=== PATIENT | female | born 1945 | race Hispanic/Latino ===

== ENCOUNTER → 2020-08-18 | Outpatient (CLI) | payer MEDICARE | END | disposition home or self-care (01) | LOC: OIH 10:36 | PROVIDERS: ATTEND Family Medicine | DX: R07.81 Pleurodynia (principal); R91.1 Solitary pulmonary nodule; M47.814 Spondylosis without myelopathy or radiculopathy, thoracic region; I10 Essential (primary) hypertension; M54.6 Pain in thoracic spine | CPT/HCPCS: 71046; 71110 ==

== ENCOUNTER 2023-12-12 19:33 | Emergency (ER) | payer MEDICARE ==
[~2023-12-12] VITALS: Ht 167.6 cm; Wt 104.3 kg
[2023-12-12] MEDS ORDERED: DICL20GE TP (20:41)
[2023-12-12] MEDS ORDERED: FLUT16H NASAL (20:41)
[2023-12-12] MEDS ORDERED: AMOX1TAB16 PO (20:41)
[2023-12-12 21:14] VITALS: BP 182/81; PULSE 71; RESP 18; TEMP 98.5; O2SAT 100
== END 2023-12-12 21:26 | disposition home or self-care (01) ==
LOC: EDH 19:33
DX: J01.10 Acute frontal sinusitis, unspecified (principal); E11.9 Type 2 diabetes mellitus without complications; I10 Essential (primary) hypertension; Z88.5 Allergy status to narcotic agent; Z90.89 Acquired absence of other organs; Z85.528 Personal history of other malignant neoplasm of kidney

== ENCOUNTER 2025-02-13 22:26 | Emergency (ER) | payer MEDICARE, OTHER ==
[~2025-02-13] VITALS: Ht 167.6 cm; Wt 104.3 kg
[2025-02-13 23:52] LABS: IMMATURE GRANULOCYTE ABSOLUTE 0.03 K/uL (0-1); NUCLEATED RED BLOOD CELLS 0.0 % (0.0-0.19); PLATELET COUNT (AUTO) 235 K/uL (130-400); RED BLOOD CELL COUNT(AUTO) 3.69 MIL/uL (4.00-5.50); RED CELL DISTRIBUTION WIDTH 13.6 % (11.0-15.5); WHITE BLOOD COUNT (AUTO) 7.1 K/uL (4.8-10.8)
[2025-02-14 00:02] LABS: CREATININE 1.6 mg/dL (0.5-1.0); GLOMERULAR FILTR. RATE CALC 33 mL/min (>90); GLUCOSE,RANDOM 115 mg/dL (70-105); SODIUM SERUM 139 mmol/L (136-145); UREA NITROGEN, BLOOD 42 mg/dL (7-18)
--- NOTE | 2025-02-14 00:06 | NUR ---
PATIENT TRYING TO GET URINE SAMPLE AT THIS TIME.
--- NOTE | 2025-02-14 00:12 | HMCIMG ---
EXAM: CR Chest, 1 view CLINICAL HISTORY: Altered mental status. COMPARISON: None provided. FINDINGS: 6 mm calcified granuloma in the left mid zone. Mildly elevated right hemidiaphragm. The lungs show no infiltrates or other acute findings. No pleural effusion or pneumothorax. The cardiomediastinal silhouette is within normal limits. No acute osseous abnormality. Degenerative osseous changes. IMPRESSION: No acute cardiopulmonary pathology is evident. /[place]
[2025-02-14 00:20] LABS: COVID19 (SARS ANTIGEN RAPID) PRESUMPTIVE NEGATIVE (NEGATIVE); INFLUENZA TYPE A Negative For Type A (NEGATIVE); INFLUENZA TYPE B Negative For Type B (NEGATIVE)
[2025-02-14 00:25] LABS: APPEARANCE,URINE CLOUDY (CLEAR); GLUCOSE, URINE (UA) NEGATIVE (NEGATIVE); LEUKOCYTE ESTERASE ,URINE NEGATIVE Leu/uL (NEGATIVE); NITRATE,URINE NEGATIVE (NEGATIVE); OCCULT BLOOD,URINE NEGATIVE (NEGATIVE)
[2025-02-14 00:26] LABS: ADD UA MICROSCOPIC YES
[2025-02-14 00:27] LABS: SQUAMOUS EPITHELIAL CELL,UR MOD /HPF (0-2)
--- NOTE | 2025-02-14 02:33 | ERN ---
ED Note History of Present Illness Stated Complaint: C/O CONFUSION Chief Complaint: Altered Mental Status Time Seen by MD: 22:38 Time Seen by Midlevel: 22:38 Dictation: The patient is a 79-year-old female with a history of diabetes, hypertension, seizures, CKD, meningioma who presents to the emergency department with complaints an episode of confusion earlier today. Per daughter she got home around 6:00 p.m. she noticed remarkable was getting ready to go to the [facility] which they had already gone this morning. Reports patient was confused on the time of day. They denied any falls or head trauma, denies any seizures activity, fever, recent illness. Patient has no complains. Allergies: Coded Allergies: Codeine (Unverified Allergy, 11/23/11) Home Meds Active Scripts Diclofenac Sodium (Voltaren Arthritis Pain) 1 % Gel..gram., 20 GM TP BID for 7 Days, #1 TUBE Prov:PANFILO VENTURA MD 12/12/23 Fluticasone Propionate (Flonase Nasal [place]) 50 Mcg/Actuation [place], 50 MCG NASAL BID for 14 Days, #60 SPRAY Prov:PANFILO VENTURA MD 12/12/23 Amoxicillin/Potassium Clav (Amox Tr-K Clv 875-125 mg Tab) 875 Mg-125 Mg Tablet, 1 EACH PO BID for 7 Days, #14 TAB Prov:PANFILO VENTURA MD 12/12/23 Past Medical History Past Medical History: Diabetes-Type II, Hypertension Additional Past Medical Hx: HX OF MENINGOMA; HX OF KIDNEY CA ( REMISSION) Surgical History: Other Surgical History Other: THYROIDECTOMY RN Note Reviewed/Agreed w/PFSH: Yes Review of System Dictation Constitutional: Negative for fever,chills, and weight loss Eyes: Negative for injury, pain,redness, and discharge ENT: Negative for injury,pain or swelling Cardiovascular: Negative for chest pain, palpitations, and edema Respiratory: Negative for shortness of breath, cough, and wheezing, Abdomen/GI: Negative for abdominal pain, nausea, vomiting, diarrhea, and constipation Back: Negative for injury and pain : Negative for injury, bleeding and discharge MS/Extremity: Negative for injury and deformity Skin: Negative for rash, and discoloration Neuro: Negative for headache, weakness, numbness, tingling, and seizure positive for confusion Psych: Negative for suicide ideation, homicidal ideation, and hallucinations Initial Vital Sign VS Vital Signs Date Time Temp Pulse Resp B/P (MAP) Pulse Ox O2 Delivery O2 Flow Rate FiO2 02/13/25 22:32 97.0 74 20 136/52 99 Room Air 02/14/25 00:35 0 21 Physical Exam Dictation Vital Signs reviewed General Appearance: Alert, oriented x 3, no acute distress, well developed, nourished. Head and Face: non-traumatic. Eyes: PERRL, pink conjunctivas, eyelid no trauma, anterior chamber with arcus s enilis. Ears: Pinnas intact and no signs of trauma or erythema ear canals clear and no discharge TM no erythema Nose: No discharge, no bleeding. Oropharynx: Mouth normal, tongue pink. pharynx clear,no erythema, tonsils no exudates, no abscesses noted, mucous membrane moist Neck: Supple, non-tender, no thyromegaly, no masses, no JVD, no bruits Breast:Deferred Chest:No tenderness, no crepitus, no paradoxical movement, no retractions Lungs:Clear, well-ventilated, symmetric, no rales, no wheezing, no rhonchi, no stridor, good breath sounds bilaterally Heart: Regular rate, regular rhythm, no murmur, no gallops Vascular: no peripheral edema, Abdomen: Soft, positive bowel sounds, nondistended, no guarding, nontender, no rebound, no masses no hepatomegaly, no splenomegaly, no Elliott's sign, no hernias. Rectal: Deferred Genital: Deferred Neurological: Normal speech, motor function intact, sensory function intact Musculoskeletal: Neck nontender, full range of motion, back nontender, full range of motion, Extremities: nontender, full range of motion Skin: Color pink, dry, no turgor, no rash, no lacerations, no abrasions, no contusions. Lymphatic: Deferred Results (Laboratory/Radiology) Laboratory/Radiology Laboratory Tests Test 02/13/25 23:43 02/13/25 23:56 02/14/25 00:16 White Blood Count 7.1 K/uL (4.8-10.8) Red Blood Count 3.69 MIL/uL (4.00-5.50) L Hemoglobin 10.8 g/dL (12.0-16.0) L Hematocrit 32.5 % (36-48) L Mean Corpuscular Volume 88.1 fL (79-99) Mean Corpuscular Hemoglobin 29.3 pg (27.0-33.0) Mean Corpuscular Hemoglobin Concent 33.2 g/dL (32.0-36.0) Red Cell Distribution Width 13.6 % (11.0-15.5) Platelet Count 235 K/uL (130-400) Mean Platelet Volume 9.9 fL (7.5-10.5) Immature Granulocyte % (Auto) 0.4 % (0-1) Neutrophils (%) (Auto) 69.6 % (40.0-77.0) Lymphocytes (%) (Auto) 20.6 % (21.0-51.0) L Monocytes (%) (Auto) 7.5 % (3.0-13.0) Eosinophils (%) (Auto) 1.6 % (0.0-8.0) Basophils (%) (Auto) 0.3 % (0.0-5.0) Neutrophils # (Auto) 4.9 K/uL (1.8-7.7) Lymphocytes # (Auto) 1.5 K/uL (1.0-4.8) Monocytes # (Auto) 0.5 K/uL (0.1-1.0) Eosinophils # (Auto) 0.11 K/uL (0.00-0.70) Basophils # (Auto) 0.02 K/uL (0.00-0.20) Absolute Immature Granulocyte (auto 0.03 K/uL (0-1) Nucleated Red Blood Cells 0.0 % (0.0-0.19) Sodium Level 139 mmol/L (136-145) Potassium Level 3.9 mmol/L (3.5-5.1) Chloride Level 102 mmol/L (101-111) Carbon Dioxide Level 27 mmol/L (21-32) Blood Urea Nitrogen 42 mg/dL (7-18) H Creatinine 1.6 mg/dL (0.5-1.0) H Glomerular Filtration Rate Calc 33 mL/min (>90) Random Glucose 115 mg/dL (70-105) H Lactic Acid Level 1.1 mmol/L (0.8-2.5) Total Calcium 8.6 mg/dL (8.5-10.1) Ammonia < 10 umol/L (11-32) L Troponin I High Sensitivity 12 ng/L (4-50) Influenza Type A Antigen Negative For Type A Influenza Type B Antigen Negative For Type B SARS-CoV-2 Antigen (Rapid) PRESUMPTIVE NEGATIVE Group A Streptococcus Rapid negative (NEGATIVE) Urine Color LIGHT-YELLOW (YELLOW) Urine Appearance CLOUDY (CLEAR) H Urine pH 5.0 (5.0-8.0) Urine Specific [place] 1.016 (1.001-1.031) Urine Protein NEGATIVE mg/dL (NEGATIVE) Urine Glucose (UA) NEGATIVE mg/dL (NEGATIVE) Urine Ketones NEGATIVE mg/dL (NEGATIVE) Urine Occult Blood NEGATIVE (NEGATIVE) Urine Nitrate NEGATIVE (NEGATIVE) Urine Bilirubin NEGATIVE mg/dL (NEGATIVE) Urine Urobilinogen 0.2 mg/dL (0.2-1.0) Urine Leukocyte Esterase NEGATIVE [place]/uL Urine RBC 0-1 /HPF (0-1) Urine WBC 2-5 /HPF (0-1) H Urine Squamous Epithelial Cells MOD /HPF (0-2) Urine Bacteria RARE /HPF (None Seen) Urine Hyaline Casts 2-5 /LPF (0-1 /LPF) H REASON: ams ORDERING PHYSICIAN: MELE FOWLER PROCEDURE: CXR1VW - CHEST 1VW EXAM: CR Chest, 1 view CLINICAL HISTORY: Altered mental status. COMPARISON: None provided. FINDINGS: 6 mm calcified granuloma in the left mid zone. Mildly elevated right hemidiaphragm. The lungs show no infiltrates or other acute findings. No pleural effusion or pneumothorax. The cardiomediastinal silhouette is within normal limits. No acute osseous abnormality. Degenerative osseous changes. IMPRESSION: No acute cardiopulmonary pathology is evident. /[place] Labs Reviewed?: Yes EKG: (+) rhythm (Sinus rhythm) EKG Comment: Date:02/13/2025 Time:2308 Ventricular rate:79 CA interval:152 QRS duration:99 QT/QTc:406/467 EKG interpretation: Sinus rhythm Reviewed by ED Attending No STEMI ED Course ED Course Orders Procedure Category Date Status Time Ammonia LAB 02/13/25 Complete 22:38 Basic Metabolic Panel LAB 02/13/25 Complete 22:38 Cbc With Differential LAB 02/13/25 Complete 22:38 Influenza Type A & B, LAB 02/13/25 Complete Rapid 22:38 Urinalysis Profile LAB 02/13/25 Complete 22:38 Troponin I High LAB 02/13/25 Complete Sensitivity 22:38 Lactic Acid LAB 02/13/25 Complete 22:38 Covid19 (Sars Antigen LAB 02/13/25 Complete Rapid) 22:38 Ct Head/Brain W/O CT 02/13/25 Resulted Contrast 22:53 Chest 1vw RAD 02/13/25 Resulted 22:53 12 Lead Ekg Tracing- EKG 02/13/25 Logged Technical 22:53 Bedside Glucose CPOE 02/13/25 Transmitted Fingerstick 22:53 Rapid (Group A Strep) LAB 02/13/25 Complete 23:56 Vital Signs Date Time Temp Pulse Resp B/P (MAP) Pulse Ox O2 Delivery O2 Flow Rate FiO2 02/14/25 03:32 98.2 68 18 135/55 99 Room Air* 0 21 02/14/25 02:38 71 18 135/54 96 Room Air* 0 21 02/14/25 01:25 66 18 125/57 96 Room Air* 0 21 02/14/25 00:35 74 18 149/56 97 Room Air* 0 21 02/13/25 22:32 97.0 74 20 136/52 99 Room Air Medical Decision Making MDM The patient is a 79-year-old female with a history of diabetes, hypertension, seizures, CKD, meningioma who presents to the emergency department with complaints an episode of confusion earlier today. Per daughter she got home around 6:00 p.m. she noticed remarkable was getting ready to go to the [facility] clinic which they had already gone this morning. Reports patient was confused on the time of day. They denied any falls or head trauma, denies any seizures activity, fever, recent illness. Patient has no complains. CBC showed no leukocytosis, mild normocytic anemia, chemistry showed elevated creatinine and GFR. Patient reports that that is her baseline. Negative troponin, urinalysis unremarkable, serology negative, chest x-ray showed no acute pathology. Differential diagnosis: UTI, CVA, encephalopathy, hyperammonemia Need for hospitalization: Patient does not meet criteria for hospitalization. There are no social concerns with this patient. Patient has a history of a benign meningioma. She is aware of this diagnosis and has appropriate follow up. She has a follow up appointment with her primary care doctor later today 02/14/2025. She will follow up with the primary care doctor. She is alert oriented. No acute distress. Vital signs stable. She is answering questions appropriately nose her situation. NIH STROKE SCALE: NIH STROKE SCALE Response (Comments) Value Level of Consciousness Alert 0 Ask patient month and their age Answers both correct 0 Command to open eyes, make fist and let go Obeys both correct 0 Best gaze (horizontal eye movement) Normal 0 Visual Field Testing No Visual Field Loss 0 Facial Paresis Normal / Symmetrical 0 Motor Function - Left Arm Normal 0 Motor Function - Right Arm Normal 0 Motor Function - Left Leg Normal 0 Motor Function - Right Leg Normal 0 Limb Ataxia No Ataxia 0 Sensory-pin prick to arms, legs, trunk and face Normal 0 Best Language (describe picture, name items and read) No Aphasia 0 Dysarthria (read several words) Normal Articulation 0 Extinction and Inattention Normal 0 Total 0 DX & DISP Disposition: Discharge Departure Impression: Primary Impression: Acute confusion Condition: Stable Referrals: HERSON BAÑUELOS MD (PCP) MELE FOWLER Feb 14, 2025 02:33 FEROZ GIL MD Feb 14, 2025 03:33
--- NOTE | 2025-02-14 03:07 | HMCIMG ---
EXAM: Non-contrast CT examination of the Brain CLINICAL HISTORY: Seizure TECHNIQUE: Thin collimated axial CT images of the brain were obtained, with sagittal and coronal reformatted images also submitted. A CT scan is done according to ALARA (As Low as Reasonably Achievable). CONTRAST USED: None. COMPARISON: None provided. FINDINGS: There is an extra-axial lesion hyperdense to the medellin matter along the falx cerebri anteriorly measuring 3.5 x 3.0 x 3.5 cm in its anterior posterior, transverse, and craniocaudal dimensions, and mild hyperostosis of the radha claudia in the frontalis interna consistent with meningioma. Moderate vasogenic edema in the right superior and middle frontal gyrus. Subtle hypodensities in the bilateral patrick radiata and centrum semiovale sequela of chronic microvascular ischemic change. Hypodensities in the inferior aspect of the bilateral putamen may represent prominent Virchow-Vlad space. No acute cortical infarction or hemorrhage is evident. No hydrocephalus or abnormal extra-axial fluid collections. The posterior fossa is unremarkable. The skull base and calvarium are intact. Atherosclerotic calcification of the vertebral arteries and cavernous portion of bilateral internal carotid arteries. The included portions of the paranasal sinuses and mastoid air cells are clear. Mild S-shaped deviation of the nasal septum. IMPRESSION: There is an extra-axial lesion hyperdense to the medellin matter along the falx cerebri anteriorly measuring 3.5 x 3.0 x 3.5 cm in its anterior posterior, transverse, and craniocaudal dimensions, and mild hyperostosis of the radha claudia in the frontalis interna consistent with meningioma. Moderate vasogenic edema in the right superior and middle frontal gyrus. Subtle hypodensities in the bilateral patrick radiata and centrum semiovale sequela of chronic microvascular ischemic change. Hypodensities in the inferior aspect of the bilateral putamen may represent prominent Virchow-Vlad space. Recommend a contrast-enhanced MRI of the brain for further evaluation. /[place]
[2025-02-14 03:32] VITALS: BP 135/55; PULSE 68; RESP 18; TEMP 98.2; O2SAT 99
--- NOTE | 2025-02-14 06:49 | EKG ---
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
== END 2025-02-14 03:40 | disposition home or self-care (01) ==
LOC: EDH 22:26
DX: R41.0 Disorientation, unspecified (principal); E11.9 Type 2 diabetes mellitus without complications; I12.9 Hypertensive chronic kidney disease with stage 1 through stage 4 chronic kidney disease, or unspecified chronic kidney disease; N18.9 Chronic kidney disease, unspecified; M85.80 Other specified disorders of bone density and structure, unspecified site; Z20.822 Contact with and (suspected) exposure to COVID-19; Z88.5 Allergy status to narcotic agent; Z90.89 Acquired absence of other organs; Z79.1 Long term (current) use of non-steroidal anti-inflammatories (NSAID)
CPT/HCPCS: 36415; 70450; 71045; 80048; 81001; 82140; 83605; 84484; 85025; 87426; 87804; 87880; 93005; 99285